=== PATIENT | male | born 1950 | race Caucasian/White ===

== ENCOUNTER → 2023-12-31 07:52 | Outpatient (REF) | payer MEDICARE, OTHER, SELFPAY | LOC: DHCBC/DCA 07:52 | PROVIDERS: ATTENDING PHYSICIAN Internal Medicine Cardiovascular Disease; FAMILY PHYSICIAN Nurse Practitioner | DX: R07.9 Chest pain, unspecified (principal) | CPT/HCPCS: 78452; 93017; A9500; J2785 ==

== ENCOUNTER → 2024-01-29 14:00 | Outpatient (REF) | payer MEDICARE, OTHER, SELFPAY | LOC: DHVS 14:00 | PROVIDERS: ATTENDING PHYSICIAN Surgery Vascular Surgery; FAMILY PHYSICIAN Nurse Practitioner | DX: I73.9 Peripheral vascular disease, unspecified (principal); I65.23 Occlusion and stenosis of bilateral carotid arteries | CPT/HCPCS: 93880; 93922; 93925 ==

== ENCOUNTER → 2024-02-27 09:58 | Outpatient (REF) | payer MEDICARE, OTHER, SELFPAY | LOC: RAD 09:58 | PROVIDERS: ATTENDING PHYSICIAN Nurse Practitioner | DX: E04.1 Nontoxic single thyroid nodule (principal) | CPT/HCPCS: 76536 ==

== ENCOUNTER → 2024-05-19 10:41 | Outpatient (REF) | payer MEDICARE, OTHER, SELFPAY ==
[2024-05-19 10:58] VITALS: BP 160/58; BP_SYST 60
== END ==
LOC: RADI 10:41
PROVIDERS: ATTENDING PHYSICIAN Nurse Practitioner Family; FAMILY PHYSICIAN Nurse Practitioner
DX: E04.1 Nontoxic single thyroid nodule (principal)
CPT/HCPCS: 88173; 10005

== ENCOUNTER → 2024-07-22 13:57 | Outpatient (REF) | payer MEDICARE, OTHER, SELFPAY | LOC: RAD 13:57 | PROVIDERS: ATTENDING PHYSICIAN Surgery Vascular Surgery; FAMILY PHYSICIAN Nurse Practitioner | DX: I65.23 Occlusion and stenosis of bilateral carotid arteries (principal); I73.9 Peripheral vascular disease, unspecified | CPT/HCPCS: 93880; 93922; 93925 ==

== ENCOUNTER → 2024-07-29 08:37 | Outpatient (REF) | payer MEDICARE, OTHER, SELFPAY ==
[2024-07-29 11:14] LABS: Blood Urea Nitrogen 16 mg/dl (9-20); Calcium 9.1 mg/dl (8.4-10.2); Carbon Dioxide 27 mmol/L (22-30); Chloride 104 mmol/L (98-107); Glucose 105 mg/dl (70-99); Potassium 4.6 mmol/L (3.5-5.1); Sodium 141 mmol/L (135-145); eGFR > 60.00
[2024-07-29 11:27] LABS: PSA, Total - Diagnostic < 0.06 ng/ml (0.0-4.0)
== END ==
LOC: REG 08:37
PROVIDERS: ATTENDING PHYSICIAN Surgery Vascular Surgery; FAMILY PHYSICIAN Radiology Radiation Oncology
DX: C61 Malignant neoplasm of prostate (principal); Z01.812 Encounter for preprocedural laboratory examination
CPT/HCPCS: 36415; 80048; 84153

== ENCOUNTER → 2024-08-05 14:43 | Outpatient (REF) | payer MEDICARE, OTHER, SELFPAY | LOC: RAD 14:43 | PROVIDERS: ATTENDING PHYSICIAN Surgery Vascular Surgery; FAMILY PHYSICIAN Nurse Practitioner | DX: I65.23 Occlusion and stenosis of bilateral carotid arteries (principal) | CPT/HCPCS: 70496; 70498; Q9967 ==

== ENCOUNTER → 2024-08-31 10:06 | Outpatient (REF) | payer MEDICARE, OTHER, SELFPAY | LOC: HWRAD 10:06 | PROVIDERS: ATTENDING PHYSICIAN Surgery Vascular Surgery; FAMILY PHYSICIAN Nurse Practitioner | DX: J18.1 Lobar pneumonia, unspecified organism (principal); Z01.818 Encounter for other preprocedural examination | CPT/HCPCS: 71250 ==

== ENCOUNTER 2024-09-08 10:00 | Inpatient (IN) | payer MEDICARE, OTHER, SELFPAY ==
[2024-09-02 09:45] VITALS: BMI 29.6
[2024-09-02 10:08] LABS: % Basophils 0.8 % (0-2); % Eosinophils 7.7 % (0-6); % Immature Granulocytes 0.4 % (0-0.5); % Monocytes 9.2 % (1.7-9.3); % Neutrophils 60.9 % (42.2-75.2); Absolute Basophils 0.1 10^3/uL (0-0.2); Absolute Eosinophils 0.6 10^3/uL (0-0.7); Absolute Lymphocytes 1.7 10^3/uL (1.2-3.4); Absolute Monocytes 0.7 10^3/uL (0.1-0.6); Absolute Neutrophils 4.8 10^3/uL (1.4-6.5); Hematocrit 50.6 % (39.0-52.0); Hemoglobin 16.8 g/dL (13.0-18.0); Mean Corp Hgb Conc. 33.2 g/dL (33.0-37.0); Mean Corpuscular Hgb 29.3 pg (27.0-31.0); Mean Corpuscular Volume 88.2 fL (80.0-94.0); Mean Platelet Volume 9.6 fL (7.4-10.4); Nucleated Red Blood Cells % 0 % (-); Platelet Count 196 10^3/uL (130-400); Red Blood Cell Count 5.74 10^6/uL (4.70-6.10); Red Cell Dist. Width 13.7 % (11.5-14.5); White Blood Cell Count 7.9 10^3/uL (4.8-10.8)
[2024-09-02 10:18] LABS: INR 0.91; PT 12.8 Sec (11.4-14.6)
[2024-09-02 10:19] LABS: APTT 27.3 Sec (23.4-35.0)
[2024-09-02 14:02] LABS: Blood Urea Nitrogen 19 mg/dl (9-20); Estimated Creatinine Clearance 85 ml/min; Glucose 108 mg/dl (70-99); eGFR > 60.00
[2024-09-02 14:03] LABS: Calcium 9.4 mg/dl (8.4-10.2); Carbon Dioxide 23 mmol/L (22-30); Chloride 102 mmol/L (98-107); Potassium 4.7 mmol/L (3.5-5.1); Sodium 138 mmol/L (135-145)
[2024-09-08] VITALS (26 sets, daily range): BP systolic 95–175; BP diastolic 50–92; BMI 29.4
[2024-09-08] MEDS: BACTROBAN NASAL 1 GRAM NASAL (06:38)
[2024-09-08] MEDS: NSS 500 IV (06:38)
[2024-09-08] MEDS: PERIDEX 0.12% ORAL RINSE 15 ML PO (06:38)
--- NOTE | 2024-09-08 06:56 | W.SUR.PREOP ---
Pre-Operative Surgical Note
-
I have examined this patient prior to the performance of the scheduled procedure.
The patient's condition is unchanged from the time of the current History and
Physical and the patient is able to undergo the scheduled procedure.
--- NOTE | 2024-09-08 09:47 | W.SUR.POST ---
Surgical Immediate Post Op
Note
Pre Op Diagnosis: Carotid stenosis
Post Op Diagnosis: Same
Procedure Performed: Left carotid endarterectomy with bovine pericardial patch angioplasty and EEG monitoring
Primary Surgeon: Yanick
Assist: Carlitos CARRILLO
Anesthesia: General
Estimated Blood Loss: 15 cc
Fluids: See anesthesia flowsheet
Drains/Shunts: None
Specimens/Cultures: Carotid plaque
Doppler/Duplex/Angio (Y/N): Y
Complications: None
Operative Findings: Woke from anesthesia moving all extremities
--- NOTE | 2024-09-08 10:04 | OR.RPT ---
Operative Report
Operative Report
PROCEDURE DATE: 09/08/2024
Preoperative diagnosis: Critical left carotid stenosis, asymptomatic.
Postoperative diagnosis: Same
Procedure: Left carotid endarterectomy with bovine pericardial patch angioplasty and intraoperative EEG/SSEP monitoring.
Surgeon: Yanick
Pin Setter: EZRA Urbina, required for all aspects of procedure including assistance with traction/countertraction, following of suture line, assistance with closure.
Complications: None
Anesthesia: General
Indications for procedure:
Critical left carotid artery stenosis. History of right carotid endarterectomy. Progressive stenosis on the left side. Asymptomatic. Risk/benefits/alternatives of endarterectomy fully discussed. Patient understood all wished to proceed.
Description of procedure:
Patient was identified brought to the operating room placed on the table in supine position. After the adequate administration of anesthesia and perioperative antibiotics he was prepped and draped in the standard surgical fashion. A standard
preoperative timeout was undertaken and everybody was in agreement the plan. A standard longitudinal incision was made in the left neck that was carried through the skin subcutaneous tissue. Using the electrocautery dissection was carried through
the platysma muscle layer and then alongside the anterior medial border of the sternocleidomastoid muscle. Then using a combination of sharp dissection with the Metzenbaum scissors and electrocautery I dissected along the anterior medial border of
the internal jugular vein. The common facial vein branch was ligated between silk ties and then divided. I then deepened my retraction. The common carotid artery was identified and carefully dissected away from the surrounding structures take
great care to avoid any injury to the structures. A vessel loop was passed around it which was double looped, but not yet tightened. Note the vagus nerve was noted in its usual course posterior lateral to the common carotid artery, and was
protected from harm's way. I then continued my dissection up the common carotid artery to the bulb staying only on the anterior surface of the carotid artery. Then I carried the dissection up to the internal carotid artery and then to the distal
internal carotid artery. I identified where it was soft and carefully circumferentially dissected the internal carotid artery with minimal mobilization and passed a vessel loop around it. Note the hypoglossal nerve was preserved from harm's way.
The patient was given an appropriate dose of heparin 9000 units. Next I dissected the anterior surface of the external carotid artery and superior thyroid branches. These were then carefully circumferentially dissected with minimal mobilization
and vessel loops passed around these which were double looped but not yet tightened. After 3 minutes of heparin circulation time and confirmation of optimization of the blood pressure with my anesthesiology colleagues, I clamped the distal internal
carotid artery where it was soft. There was no immediate EEG or SSEP changes. After 1 minute of test clamp time there was no changes noted. Therefore at this point, the vessel loops on the external carotid artery and superior thyroid branches
were tightened and the common carotid artery was clamped where it was soft proximally. An arteriotomy was made on the common carotid artery with an 11 blade and extended using a Vera scissor. I extended the arteriotomy onto the mid to distal
internal carotid artery. There was dense calcified plaque that resulted in severe stenosis such that I did great difficulty even opening the lumen/finding the lumen with my Vera scissor, but was finally able to do so. A [place] was then used to
endarterectomized the plaque. An endarterectomy plane was created, and the plaque was then endarterectomized. Distally I feathered the plaque out to a nice clean endpoint in the distal internal carotid artery. Next I endarterectomized the intima
back to normal intima in the common carotid artery, and the intima was cut flush there. I then grasped the plaque and everted plaque out of the origin of the external carotid artery. The plaque was then sent off for specimen. The origin of the
external carotid artery was carefully visualized and any fine debris were removed with fine forceps. Proximal and distal endpoints were then carefully inspected. Any fine debris was removed with fine forceps, and the intima was noted to be nicely
adherent proximally and distally. Next any fine debris were removed throughout the endarterectomy bed with fine forceps. I then flushed heparinized saline. I was very satisfied. Then, I used a bovine pericardial patch to sew a patch angioplasty
with a running 6-0 Prolene suture. Prior to completing and tying down my suture line, I backbled sequentially each branch and reclamped each branch prior to unclamping the next branch. I then irrigated with heparinized saline. Then I completed
and tied down my suture line. We then restored flow in the common carotid and external carotid arteries. Finally, we released flow in the internal carotid artery. There was excellent pulsatile flow in all 3 vessels. There was an excellent
Doppler signal in the internal carotid artery distal to the patch with a good normal low resistance Doppler signal. There was a good Doppler signal in the external carotid artery as well. Protamine was given to reverse the heparin. Hemostasis
was completely achieved. We then irrigated and confirmed full hemostasis. I then closed in layers with 2-0 Vicryl layer to reapproximate the sternocleidomastoid muscle, followed by 3-0 Vicryl platysma muscle running layer, followed by 4-0 Monocryl
subcuticular stitch. Dermabond was applied. The patient tolerated procedure well. He awoke moving all extremities to command with tongue in the midline.
--- NOTE | 2024-09-08 10:09 | CON.INTV ---
Consultation
Consultation Request
Date/Time Consultation Requested: 09/08/2024940
Date/Time Consultation Performed: 09/08/2024 - 1004
Requesting Provider: LORENA Adler
Performing Provider: Dr. Kruse
Reason for Consultation: s/p L-CEA
Medical History
-
Chief Complaint: Elective left carotid endarterectomy
History of Present Illness:
74-year-old male former tobacco smoker with a past medical history of PAD, bilateral carotid artery stenosis with history of right carotid endarterectomy, subclavian arterial stenosis, hypercholesterolemia, history of prostate cancer, AAA, CAD and
history of [place] who presents for elective left carotid endarterectomy. Patient known to vascular surgery with last office visit on 07/27/[address] Herndon. He has had progression of his left-sided carotid stenosis with >70% stenosis. Surgical
intervention was discussed including its risks and benefits and he agreed to procedure. Today he underwent a left carotid endarterectomy with bovine pericardial patch angioplasty and EEG monitoring. EBL was 15 cc and there were no immediate
complications. 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
When I saw the patient he was resting in bed in no acute distress. Has some pain in the left side of his neck but no shortness of breath, [place], nausea, vomiting, fevers or chills. Currently saturating 93% on 2 L/min, BP 109/67 and heart rate 60.
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
PSHx: Angioplasty (2011), CABG x 4, femoral vascular cleaning, femoral�femoral bypass (left � 2001), femoral artery endarterectomy, right carotid endarterectomy
Past Medical History
Past Medical History: Other (Above as per HPI)
Past Surgical History: Other (Above as per HPI)
Social History
Tobacco: Former Smoker (Smoked 0.5-1 PPD x 40 years; quit 09/10/2005)
Alcohol: None
Drug: None
Family History
Family History: CAD (Father) and Cancer (Mother: Stomach cancer)
Allergies / Home Medications
Allergies
Allergy/AdvReac Type Severity Reaction Status Date / Time
pollen extracts Allergy Nasal Verified 09/08/24 06:42
Congestion
Home Medications
�Medication �Instructions �Recorded �Confirmed �Last Taken �Type
metoprolol succinate 25 mg 12.5 mg PO DAILY Heart 07/20/12 09/08/24 09/08/24 05:00 History
tablet,extended release 24 hr Disease/Condition
atorvastatin 80 mg tablet 80 mg PO HS High Cholesterol 07/24/16 09/08/24 09/07/24 20:00 History
naproxen sodium 220 mg tablet 220 mg PO Q12H PRN pain ##0 12/22/20 09/08/24 08/18/24 08:00 Rx
(Aleve)
aspirin 325 mg tablet 325 mg PO DAILY Blood Clot 08/31/24 09/08/24 09/08/24 05:00 History
Prevention/Tx
coenzyme Q10 100 mg capsule 300 mg PO DAILY Supplement 08/31/24 09/08/24 09/05/24 20:00 History
(CoQ-10)
cyanocobalamin (vitamin B-12) 5,000 mcg sublingual DAILY 08/31/24 09/08/24 09/05/24 20:00 History
5,000 mcg sublingual tablet Supplement
(Vitamin B-12)
fexofenadine 180 mg tablet 180 mg PO DAILY PRN Allergy 08/31/24 09/08/24 09/05/24 20:00 History
Symptoms
isosorbide mononitrate 60 mg 60 mg PO DAILY Blood Pressure 08/31/24 09/08/24 09/07/24 08:00 History
tablet,extended release 24 hr
Review of Systems
-
History Source: Patient
All other systems: Negative unless noted
Vitals / Labs / Diagnostic Testing
Vital Signs
Temp Pulse Resp BP Pulse Ox
98.2 F 56 11 116/61 92
09/08/24 11:22 09/08/24 15:30 09/08/24 15:30 09/08/24 15:10 09/08/24 15:30
Lab Data
09/08/24 10:06
09/08/24 10:06
Laboratory Results
09/08/24
10:06
PT 14.6
INR 1.09
APTT 29.4
Diagnostic Testing:
Physical Exam
-
HEENT: Normocephalic and Anicteric
Cardiovascular: S1/S2 and Peripheral Edema (negative)
Respiratory: Wheeze (negative), Rales (negative), Rhonchi (negative) and Non-Labored Respirations
GI: Soft, Non Distended, Non Tender and Normal Bowel Sounds
Neurology: AO x 3 and Tremors (negative)
Skin: Warm, Dry and Other (Bandage on left anterior neck)
General: Respiratory Distress (negative), Comfortable, Fever (negative) and Chills (negative)
Assessment
-
Assessment: 74-year-old male former tobacco smoker with a past medical history of PAD, bilateral carotid artery stenosis with history of right carotid endarterectomy, subclavian arterial stenosis, hypercholesterolemia, history of prostate cancer,
AAA, CAD and history of [place] who presents for elective left carotid endarterectomy. Patient known to vascular surgery with last office visit on 07/27/[address] Herndon. He has had progression of his left-sided carotid stenosis with >70% stenosis.
Surgical intervention was discussed including its risks and benefits and he agreed to procedure. On 09/08/2024 he underwent a left carotid endarterectomy with bovine pericardial patch angioplasty and EEG monitoring. EBL was 15 cc and there were no
immediate complications. 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
Impression:
#Asymptomatic critical left carotid artery stenosis s/p left carotid endarterectomy with bovine pericardial patch angioplasty and intraoperative EEG/SSEP monitoring (POD #0)
#History of increased eosinophil count (absolute eosinophils 600 on 09/02/2024)
#PVD with claudication with history of bypass and endarterectomy
#Hypercholesterolemia
#Hypertension
#AAA
#CAD with history of [place]
#History of prostate cancer
#Former tobacco use (Smoked 0.5-1 PPD x 40 years; quit 09/10/2005)
#Centrilobular emphysema due to smoking history (no known history of COPD)
#Bilateral lower lobe calcified granulomas
#Ill-defined/irregular subpleural opacities with 15 x 9 mm abnormality in the superior segment of the right lower lobe likely due to scarring vs rounded atelectasis
Plan:
Postoperative surgical intensive care unit monitoring
Supplemental oxygen as needed to maintain SpO2 >90-94%
prn nebulized bronchodilators � not currently bronchospastic
Incentive spirometry encouraged 10x per hour for at least 4 hrs a day
Aspiration precautions
Pain control
Neuro and vascular checks per protocol
Maintain MAP>65
Replete electrolytes with K>4, Mg>2
Maintain euglycemia with goal BG 140-180
Vascular surgery following-correspondence and operative notes reviewed
Transfuse blood products as needed to keep Hb>7g/dL, and plt>50k (given post-operative status)
DVT prophylaxis
Early nutrition
Early mobilization
Given the 15 x 9 mm abnormality seen in the superior segment of his right lower lobe, as well as centrilobular emphysema, outpatient pulmonary office follow-up will be arranged to discuss additional imaging needed and to check PFTs to rule out COPD.
Critical care statement: A total of 44 minutes of critical care time was provided for this patient today. This includes management of unstable vital signs, evaluation of the patient at bedside, reviewing the patient's pertinent medical records
including radiographs, microbiology, laboratory evaluations, and discussion with primary team, consultants, pharmacy, nutrition, physical therapy, case management, charge nurse, critical care nursing, and respiratory therapy.
[2024-09-08 10:21] LABS: Hematocrit 45.3 % (39.0-52.0); Hemoglobin 15.1 g/dL (13.0-18.0); Mean Corp Hgb Conc. 33.3 g/dL (33.0-37.0); Mean Corpuscular Hgb 30.1 pg (27.0-31.0); Mean Corpuscular Volume 90.2 fL (80.0-94.0); Mean Platelet Volume 9.5 fL (7.4-10.4); Platelet Count 193 10^3/uL (130-400); Red Blood Cell Count 5.02 10^6/uL (4.70-6.10); White Blood Cell Count 8.6 10^3/uL (4.8-10.8)
[2024-09-08] MEDS: DILAUDID 0.25 MG IV ×2 (10:21→10:42)
[2024-09-08 10:32] LABS: INR 1.09; PT 14.6 Sec (11.4-14.6)
[2024-09-08 10:33] LABS: APTT 29.4 Sec (23.4-35.0)
[2024-09-08 10:37] LABS: Blood Urea Nitrogen 18 mg/dl (9-20); Calcium 8.1 mg/dl (8.4-10.2); Carbon Dioxide 23 mmol/L (22-30); Chloride 107 mmol/L (98-107); Estimated Creatinine Clearance 96 ml/min; Glucose 113 mg/dl (70-99); Potassium 5.1 mmol/L (3.5-5.1); Sodium 137 mmol/L (135-145); eGFR > 60.00
--- NOTE | 2024-09-08 11:30 | PTCARENOTE ---
pt received as admission from PACU into room 3361. pt AAOX3. strength equal bilaterally, tongue midline. pt reports 3/10 left neck/jaw pain. Left neck incision with gauze dressing, tegaderm with small amount of old draining. swelling at top of
incision noted. SR/SB on telemetry heart rate 50-60s with pacs. doppler bilateral lower extremity pulses. Left radial arterial line leveled and zeroed, noted to be positional. pt denies nausea, tolerating ice chips. pt denies urge to void at this
time. see worklist for full nursing assessment and interventions.
[2024-09-08] MEDS: NSS 1000 IV ×2 (12:15→21:01)
[2024-09-08] MEDS: ROXICODONE 5 MG PO ×2 (12:23→20:57)
[2024-09-08] MEDS: HEPARIN 5000 UNITS SC (15:13)
[2024-09-08] MEDS: TYLENOL 650 MG PO (15:13)
--- NOTE | 2024-09-08 16:35 | PTCARENOTE ---
pt resting comfortably in bed eating dinner. neurologically intact. received tylenol for a mild headache. left neck incision with small amount of swelling, dressing with small amount of serosanguineous drainage. pt voided 350 ml clear yellow urine.
remains SB/SR on telemetry heart rate 50-60s. SBP low 100s. per orders left arterial line dced due to being positional. no further changes in assessment noted.
--- NOTE | 2024-09-08 20:00 | PTCARENOTE ---
Received pt via handoff. Pt AAOX3. strength equal bilaterally, tongue midline. Pt reports 3/10 left neck pain w/ slight headache. Left neck incision with gauze dressing, Tegaderm with small amount of old draining, swelling at top of incision noted.
NSR/SB on telemetry heart rate 50-60s with PAC's. Doppler bilateral lower extremity pulses. Able to use urinal to void. Pt denies nausea, tolerating ice chips. See worklist for full nursing assessment and interventions.
[2024-09-08] MEDS: MELATONIN 10 MG PO (20:56)
[2024-09-08] MEDS: LIPITOR 80 MG PO (20:57)
--- NOTE | 2024-09-08 23:57 | PTCARENOTE ---
All systems reassessed. No change in surgical site area from previous assessment. Call small at bedside.
[2024-09-09] VITALS (13 sets, daily range): BP systolic 93–163; BP diastolic 51–97; BMI 29.6
[2024-09-09] MEDS: HEPARIN 5000 UNITS SC ×2 (00:45→07:40)
[2024-09-09] MEDS: MORPHINE SULFATE 2 MG IV ×2 (00:45→05:04)
[2024-09-09] MEDS: ROXICODONE 5 MG PO ×2 (01:52→06:39)
--- NOTE | 2024-09-09 04:00 | PTCARENOTE ---
All systems reassessed. Labs drawn and hygiene performed. Left wrist IV dressing changed.
[2024-09-09 05:08] LABS: Hematocrit 41.8 % (39.0-52.0); Hemoglobin 13.9 g/dL (13.0-18.0); Mean Corp Hgb Conc. 33.3 g/dL (33.0-37.0); Mean Corpuscular Volume 90.1 fL (80.0-94.0); Mean Platelet Volume 9.8 fL (7.4-10.4); Platelet Count 181 10^3/uL (130-400); Red Blood Cell Count 4.64 10^6/uL (4.70-6.10); Red Cell Dist. Width 13.7 % (11.5-14.5); White Blood Cell Count 12.9 10^3/uL (4.8-10.8)
[2024-09-09 05:19] LABS: APTT 28.1 Sec (23.4-35.0); INR 1.09; PT 14.4 Sec (11.4-14.6)
[2024-09-09 05:35] LABS: Blood Urea Nitrogen 19 mg/dl (9-20); Calcium 8.2 mg/dl (8.4-10.2); Carbon Dioxide 26 mmol/L (22-30); Chloride 106 mmol/L (98-107); Estimated Creatinine Clearance 96 ml/min; Glucose 133 mg/dl (70-99); Potassium 4.5 mmol/L (3.5-5.1); Sodium 138 mmol/L (135-145); eGFR > 60.00
[2024-09-09] MEDS: VITAMIN B-12 5000 MCG PO (07:39)
[2024-09-09] MEDS: IMDUR (EXTENDED RELEASE) 60 MG PO (07:39)
[2024-09-09] MEDS: ASPIRIN 325 MG PO (07:39)
[2024-09-09] MEDS: TOPROL XL 12.5 MG PO (07:40)
--- NOTE | 2024-09-09 07:41 | W.PN.VS ---
Addendum entered and electronically signed by Nino Herndon MD 09/09/24 09:30:
Seen and examined with EZRA Martins. Agree with findings as noted below. Patient without significant complaints. Left neck incision clean dry and intact. No hematoma. Neurologically no focal deficits. Moves all extremities well. Tongue midline.
Plan/as discussed and noted below.
Original Note:
Today's Communication / Plan
-
Patient seen and evaluated bedside with Dr. Nino Herndon, below plan reviewed with attending.
Assessment/Plan
-
Assessment: 74-year-old male POD #1 left carotid endarterectomy
Plan:
Discontinue IV fluids
Out of bed to chair with progression ambulation as tolerated
Continue antiplatelet
Likely discharge later this afternoon
Subjective Data
-
Date of Service: September 09, 2024
Patient seen and examined at bedside, reports well-managed postoperative pain. Denies difficulty swallowing and reports tolerating p.o. diet.
Objective Data
-
Vital Signs
Temp Pulse Resp BP Pulse Ox
98.2 F 50 13 122/66 93
09/09/24 05:54 09/09/24 07:00 09/09/24 07:00 09/09/24 07:00 09/09/24 07:00
Intake and Output
09/08/24 09/09/24 09/10/24
06:59 06:59 06:59
Intake Total 1720 / 1720
Output Total 2600 / 2600
Balance -880 / -880
Intake:
IV fluids (Total) 1720 / 1720
Nss 1,000 ml @ 80 mls/hr IV . 1520 / 1520
[id number] Rx#:[id number]
nss 200 / 200
Output:
Urine, Voided 2600 / 2600
Lab Results
01/23/25 04:47
09/09/24 04:47
Calcium 8.2 mg/dl (8.4-10.2) L 09/09/24 04:47
Physical Exam
-
No apparent distress, resting in bed comfortably
Tongue midline, face symmetrical, left neck surgical incision with scant fullness but no evidence of hematoma or bleeding, suture line well-approximated, Exofin glue intact
No tachycardia
No dyspnea
Moves bilateral upper extremities and lower extremities with equal strength and to command or spontaneously
--- NOTE | 2024-09-09 07:49 | PTCARENOTE ---
report received from previous RN. pt AAOX3. SINGH with equal strength. pt OOB with standby assist. 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 SR on telemetry heart rate in 60s. lower extremity pulses by doppler. weaned to room air, sat 92%.
lung sounds clear. active bowel sounds. voiding without difficulty. see worklist for full nursing assessment and interventions. pt updated on plan of care.
--- NOTE | 2024-09-09 08:20 | W.PN.INTV ---
Today's Communication / Plan
Recommendations
Up OOB as tolerated
Pain control
Maintain SpO2 >90-94%
Outpatient office follow-up to screen for COPD and discuss additional imaging needed due to abnormality seen in superior right lower lobe
Encourage incentive spirometer use
Patient being prepared for discharge home. Outpatient office follow-up will be arranged as above. No additional recommendations at this time. Phlebotomist Prn/Pulmonary service will now sign off. Please reconsult if there are any additional
questions/concerns, or if patient's respiratory status deteriorates.
Assessment
-
Assessment: 74-year-old male former tobacco smoker with a past medical history of PAD, bilateral carotid artery stenosis with history of right carotid endarterectomy, subclavian arterial stenosis, hypercholesterolemia, history of prostate cancer,
AAA, CAD and history of [place] who presents for elective left carotid endarterectomy. Patient known to vascular surgery with last office visit on 07/27/[address] Herndon. He has had progression of his left-sided carotid stenosis with >70% stenosis.
Surgical intervention was discussed including its risks and benefits and he agreed to procedure. On 09/08/2024 he underwent a left carotid endarterectomy with bovine pericardial patch angioplasty and EEG monitoring. EBL was 15 cc and there were no
immediate complications. 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
Impression:
#Asymptomatic critical left carotid artery stenosis s/p left carotid endarterectomy with bovine pericardial patch angioplasty and intraoperative EEG/SSEP monitoring (POD #1)
#History of increased eosinophil count (absolute eosinophils 600 on 09/02/2024)
#PVD with claudication with history of bypass and endarterectomy
#Hypercholesterolemia
#Hypertension
#AAA
#CAD with history of [place]
#History of prostate cancer
#Former tobacco use (Smoked 0.5-1 PPD x 40 years; quit 09/10/2005)
#Centrilobular emphysema due to smoking history (no known history of COPD)
#Bilateral lower lobe calcified granulomas
#Ill-defined/irregular subpleural opacities with 15 x 9 mm abnormality in the superior segment of the right lower lobe likely due to scarring vs rounded atelectasis
Plan:
Postoperative surgical intensive care unit monitoring
Supplemental oxygen as needed to maintain SpO2 >90-94% - currently on room air saturating 96%
prn nebulized bronchodilators � not currently bronchospastic
Incentive spirometry encouraged 10x per hour for at least 4 hrs a day
Aspiration precautions
Pain control
Neuro and vascular checks per protocol
Maintain MAP>65
Replete electrolytes with K>4, Mg>2
Maintain euglycemia with goal BG 140-180
Vascular surgery following-correspondence and operative notes reviewed
Transfuse blood products as needed to keep Hb>7g/dL, and plt>50k (given post-operative status)
DVT prophylaxis
Early nutrition
Early mobilization
Given the 15 x 9 mm abnormality seen in the superior segment of his right lower lobe, as well as centrilobular emphysema, outpatient pulmonary office follow-up will be arranged to discuss additional imaging needed and to check PFTs to rule out COPD.
Patient being prepared for discharge home. Outpatient office follow-up will be arranged as above. No additional recommendations at this time. Phlebotomist Prn/Pulmonary service will now sign off. Thank you for allowing us to be involved in the care
of this patient. Please reconsult if there are any additional questions/concerns, or if patient's respiratory status deteriorates.
Total time spent today was 42 minutes for this encounter. Time includes reviewing laboratory test/imaging results, reviewing pertinent medical records, obtaining and reviewing medical history, performing an appropriate exam, ordering medications,
tests and procedures. Time also includes documentation of this encounter, coordinating patient care and communicating with other healthcare professionals. Total time does not include separately billed tests performed on this date of service.
Subjective Dataa
Subjective Data
Date of Service:
Date of Service: September 09, 2024
Chief Complaint: Phlebotomist Prn Follow Up
Subjective:
Patient seen and evaluated this morning. No acute events reported from overnight. Vascular surgery planning to discharge home today. Heart rate 65, saturating 93% on room air with BP 100/56. Sitting in chair in no acute distress. He denies
chest pain, [place], nausea, fevers or chills.
Review of Systems
General: Other (Negative unless mentioned above)
Objective Data
Data Reviewed
Vital Signs / I&O / Oxygen:
Vital Signs
Temp Pulse Resp BP Pulse Ox
98.2 F 74 19 153/68 92
09/09/24 05:54 09/09/24 07:45 09/09/24 07:45 09/09/24 07:40 09/09/24 07:51
Intake and Output
09/08/24 09/09/24 09/10/24
06:59 06:59 06:59
Intake Total 1720 / 2200 480 / 480
Output Total 2600 / 2600
Balance -880 / -400 480 / 480
SaO2 92
Nasal Cannula flow liters per 2
minute
Physical Exam
General: Respiratory Distress (negative), Comfortable, Chills (negative) and Sweats (negative)
HEENT: Normocephalic and Anicteric
Cardiovascular: S1-S2 and Peripheral Edema (negative)
Respiratory: Clear, Wheeze (negative), Crackles (negative), Rhonchi (negative) and Non-Labored Respirations
GI: Soft, Non Distended, Non Tender and Normal Bowel Sounds
Neurology: AO x 3 and Tremors (negative)
Skin: Warm, Dry, Cyanosis (negative) and Jaundice (negative)
Labs/Micro/Reports
Lab Data
09/09/24 04:47
09/09/24 04:47
Laboratory Results
09/08/24 09/09/24
10:06 04:47
PT 14.6 14.4
INR 1.09 1.09
APTT 29.4 28.1
--- NOTE | 2024-09-09 09:24 | CM ---
CM following re: discharge planning.
Reviewed pt's chart, met with pt.
Pt is a 74 year old male, admitted with primary dx of POD #1 left carotid endarterectomy. Per Vascular surgery, pt is doing well and will be discharged early this afternoon. Pt is aware, expressed his agreement and he stated his spouse will
transport him home. IMM reviewed, placed on chart, pt has a copy.
Pt reports he lives with spouse 2SH, 1 step to enter, has 2 supportive living children, 2 children . Emotional support offered and provided. 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 No DME, VN or SNF history.
PCP: Penelope Fernández
Pharmacy: [facility].
D/C plan: home no needs. Spouse to transport.
--- NOTE | 2024-09-09 11:50 | W.DS.TRANS ---
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
-
Discharge Instructions:
Discharge Diagnosis/Procedures Left carotid endarterectomy
Diet As tolerated
Activity No strenuous activity
Driving Restrictions Not until seen by your Dr
Bathing Restrictions OK to Shower
Instructions:
Stand-Alone Forms:
Changes to Home Medications: No
Discharge Medications:
DC Medications w/original date entered in [employer]
metoprolol succinate 25 mg tablet,extended release 24 hr 12.5 mg PO DAILY Heart Disease/Condition 07/20/12
atorvastatin 80 mg tablet 80 mg PO HS High Cholesterol 07/24/16
naproxen sodium 220 mg tablet (Aleve) 220 mg PO Q12H PRN pain ##0 12/22/20
aspirin 325 mg tablet 325 mg PO DAILY Blood Clot Prevention/Tx 08/31/24
coenzyme Q10 100 mg capsule (CoQ-10) 300 mg PO DAILY Supplement 08/31/24
cyanocobalamin (vitamin B-12) 5,000 mcg sublingual tablet (Vitamin B-12) 5,000 mcg sublingual DAILY Supplement 08/31/24
fexofenadine 180 mg tablet 180 mg PO DAILY PRN Allergy Symptoms 08/31/24
isosorbide mononitrate 60 mg tablet,extended release 24 hr 60 mg PO DAILY Blood Pressure 08/31/24
Home Medication Changes
Pending Results: No
--- NOTE | 2024-09-09 13:45 | W.DCSUMMARY ---
Discharge Summary
Discharge Data
Date of Admission: 09/08/24
Date of Discharge: 09/09/24
-
Pending Results: No
Hospital Course
Attending: Nino Herndon MD
Consultants: Pulmonary medicine
Allergies: Pollen
Procedure with date: Left carotid endarterectomy with bovine pericardial patch angioplasty and intraoperative EEG/SSEP monitoring. 09/08/24 Nino Herndon MD
History of present illness: The patient is an 74 -year-old male with multiple medical conditions including: carotid stenosis, hypercholesterolemia, hypertension, AAA, CAD, and myocardial infarction. Patient presented on 09/08/24 for scheduled
procedure with Dr. Nino Herndon. Patient presented at baseline health with no reports of recent illness or trauma.
Hospital Course: Briefly, the patient underwent scheduled left carotid endarterectomy without complications, and recovered in PACU. Following recovery phase one and two patient was transferred to intensive care unit per protocol for continued
hemodynamic monitoring. Web Site Admin consulted to aid in medical management from a critical care perspective. POD #1 (09/09/24) Patient neurologically intact, face symmetrical, and tolerating PO diet. Surgical left neck incision clean, dry, and intact
with suture line well approximated and soft. No evidence of hematoma. IV fluids discontinued. Patient able to ambulate without difficulty or incident. Patient stable for discharge to home.
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 All instructions were given to the patient in both written and verbal form and the patient expressed understanding.
Discharge Plan
-
Patient Disposition: Home (Routine Discharge)
Discharge Diagnosis/Procedures: Left carotid endarterectomy
Condition: Good
Diet: As tolerated
Activity: No strenuous activity
Driving Restrictions: Not until seen by your Dr
Bathing Restrictions: OK to Shower
Activity Restrictions/Additional Instructions:
If you experience severe constant headache, weakness to an arm or leg, change in vision, trouble speaking or any stroke-like symptom, call 911 immediately
If you experience swelling, increased bruising, drainage from neck site, or fever, please call the office
Referrals:
Mic Kruse MD [Active] - in one to two months (full PFTs on day of office visit)
Penelope Fernández CRNP [Family Provider] -
Margo Jackman CRNP [Specified Professional Personl] - 09/13/24 8:15 am
Prescriptions:
Continued
metoprolol succinate 25 MG tablet extended release 24 hr
12.5 mg PO DAILY
atorvastatin 80 MG tablet
80 mg PO HS
naproxen sodium [Aleve] 220 MG tablet
220 mg PO Q12H PRN (Reason: pain) Qty: 0 0RF
aspirin 325 mg Tablet
325 mg PO DAILY
fexofenadine 180 mg Tablet
180 mg PO DAILY PRN (Reason: Allergy Symptoms)
isosorbide mononitrate 60 mg Tablet Extended Release 24 Hr
60 mg PO DAILY
coenzyme Q10 [CoQ-10] 100 mg Capsule
300 mg PO DAILY
cyanocobalamin (vitamin B-12) [Vitamin B-12] 5,000 mcg Tablet, Sublingual
5,000 mcg SUBLINGUAL DAILY
Discharge Orders:
Discharge Patient (As Directed); Ordered 09/09/24
Ordered By: Susanne Martins
Discharge Date and Time
Discharge Date/Time: 09/09/24 12:02
Print Language: CHADIAN
== END 2024-09-09 12:02 | disposition home or self-care (01) | DRG 39 ==
LOC: ICU 10:00
PROVIDERS: Nurse Practitioner Acute Care; ADMITTING PHYSICIAN Surgery Vascular Surgery; CONSULT PHYSICIAN Internal Medicine Critical Care Medicine; FAMILY PHYSICIAN Nurse Practitioner
PROC: 03UJ0KZ Supplement Left Common Carotid Artery with Nonautologous Tissue Substitute, Open Approach (ICD-10-PCS; 2024-09-08)
PROC: 03CJ0ZZ Extirpation of Matter from Left Common Carotid Artery, Open Approach (ICD-10-PCS; 2024-09-08)
DX: I65.22 Occlusion and stenosis of left carotid artery (principal); I25.10 Atherosclerotic heart disease of native coronary artery without angina pectoris; I10 Essential (primary) hypertension; E78.00 Pure hypercholesterolemia, unspecified; I77.1 Stricture of artery; I73.9 Peripheral vascular disease, unspecified; I71.40 Abdominal aortic aneurysm, without rupture, unspecified; J43.2 Centrilobular emphysema; I25.2 Old myocardial infarction; Z85.46 Personal history of malignant neoplasm of prostate; Z87.891 Personal history of nicotine dependence; Z95.1 Presence of aortocoronary bypass graft; Z95.820 Peripheral vascular angioplasty status with implants and grafts; Z79.82 Long term (current) use of aspirin; Z79.899 Other long term (current) drug therapy; Z95.5 Presence of coronary angioplasty implant and graft
CPT/HCPCS: 88304; 88311; 35301; 36415; 71045; 80048; 85025; 85027; 85610; 85730; 86850; 86900; 86901; 93005; 95938; 95941; 95955

== ENCOUNTER → 2024-10-18 14:22 | Outpatient (REF) | payer MEDICARE, OTHER, SELFPAY | LOC: RAD 14:22 | PROVIDERS: ATTENDING PHYSICIAN Physician Assistant; FAMILY PHYSICIAN Nurse Practitioner | DX: I65.23 Occlusion and stenosis of bilateral carotid arteries (principal) | CPT/HCPCS: 93880 ==

== ENCOUNTER → 2024-11-02 14:34 | Outpatient (REF) | payer MEDICARE, OTHER, SELFPAY | LOC: RAD 14:34 | PROVIDERS: ATTENDING PHYSICIAN Surgery Vascular Surgery; FAMILY PHYSICIAN Nurse Practitioner | DX: I73.9 Peripheral vascular disease, unspecified (principal) | CPT/HCPCS: 75635; Q9967 ==

== ENCOUNTER → 2024-11-24 09:33 | Outpatient (REF) | payer MEDICARE, OTHER, SELFPAY | LOC: HWRAD 09:33 | PROVIDERS: ATTENDING PHYSICIAN Internal Medicine Critical Care Medicine; FAMILY PHYSICIAN Nurse Practitioner | DX: R91.1 Solitary pulmonary nodule (principal); Z87.891 Personal history of nicotine dependence | CPT/HCPCS: 71250 ==

== ENCOUNTER → 2025-06-07 09:02 | Outpatient (REF) | payer MEDICARE, OTHER, SELFPAY | LOC: RAD 09:02 | PROVIDERS: ATTENDING PHYSICIAN Surgery Vascular Surgery; FAMILY PHYSICIAN Nurse Practitioner | DX: I73.9 Peripheral vascular disease, unspecified (principal); I65.23 Occlusion and stenosis of bilateral carotid arteries | CPT/HCPCS: 93880; 93922; 93925 ==